=== PATIENT | male | born 1965 | race Asian ===

== ENCOUNTER 2025-03-28 21:13 | Emergency (ER) | payer BC ==
[~2025-03-28] VITALS: Ht 170.2 cm; Wt 64.0 kg
[2025-03-28 21:21] VITALS: O2SAT 98
[2025-03-28] MEDS: KETOROLAC 15MG/ML VIAL IM ONE (23:16)
[2025-03-28] MEDS: MORPHINE SULFATE 4 MG/ML INJ (FOR IV/IM USE) IM ONE (23:16)
[2025-03-28] MEDS: TETANUS, DIPHTHERIA, PERTUSSIS VAC/PF 0.5ML (>10YR OLD) IM ONE (23:16)
[2025-03-28] MEDS ORDERED: BO1 TP (23:29)
[2025-03-28] MEDS ORDERED: NAPR-1176 MT (23:29)
[2025-03-28] MEDS: BACITRACIN ZINC OINT UDPKT TOP ONE (23:59)
[2025-03-29 00:02] VITALS: BP 139/86; PULSE 85; RESP 16; TEMP 36.9; O2SAT 98
== END 2025-03-29 00:02 | disposition home or self-care (01) ==
LOC: ER 21:13
DX: T24.011A Burn of unspecified degree of right thigh, initial encounter (principal); I10 Essential (primary) hypertension; Z79.1 Long term (current) use of non-steroidal anti-inflammatories (NSAID); Y09 Assault by unspecified means; Y93.89 Activity, other specified; Y92.89 Other specified places as the place of occurrence of the external cause; Y99.8 Other external cause status
CPT/HCPCS: 96372; 99284; J1885; J2270; Z7610 ×2; A6449; 90715